=== PATIENT | female | born 1960 | race African-American/Black ===

== ENCOUNTER 2021-11-18 12:05 | Emergency (ER) | payer SELFPAY ==
[2021-11-18] MEDS ORDERED: Sodium Chloride 0.9% 10 ML Syringe FLUSH PRN (12:34)
[2021-11-18] MEDS ORDERED: Sodium Chloride 0.9% 2.5 ML Syringe FLUSH PRN (12:34)
[2021-11-18] MEDS ORDERED: Sodium Chloride 0.9% 1,000 ML IV ONE (12:34)
[2021-11-18 12:54] LABS: BLOOD UREA NITROGEN,BUN 12 mg/dL (7.0-18.0); CARBON DIOXIDE,CO2 26.1 mmol/L (21.0-32.0); CHLORIDE,CL 98 mmol/L (98-107); GLUCOSE RANDOM 136 mg/dL (74-106); POTASSIUM,K 3.8 mmol/L (3.5-5.1); SODIUM,NA 135 mmol/L (136-145)
[2021-11-18 13:26] LABS: CORONAVIRUS COVID-19 NAA POSITIVE (NEGATIVE); INFLUENZA A NAA NEGATIVE (NEGATIVE); INFLUENZA B NAA NEGATIVE (NEGATIVE)
== END 2021-11-18 14:42 | disposition home or self-care (01) ==
LOC: MW.ED 12:05
DX: U07.1 COVID-19 (principal); J44.1 Chronic obstructive pulmonary disease with (acute) exacerbation; Z72.0 Tobacco use
CPT/HCPCS: 0240U; 36415; 71045; 80053; 84484; 85025; 85379; 93005; 99285; J7030

== ENCOUNTER 2022-03-02 23:03 | Emergency (ER) | payer SELFPAY ==
[2022-03-02] MEDS ORDERED: Albuterol/Ipratropium 3.0-0.5 MG/3 ML Neb Soln NEB ONE (23:16)
[2022-03-03 00:07] LABS: BLOOD UREA NITROGEN,BUN 13 mg/dL (7.0-18.0); CARBON DIOXIDE,CO2 23.8 mmol/L (21.0-32.0); CHLORIDE,CL 103 mmol/L (98-107); GLUCOSE RANDOM 92 mg/dL (74-106); SODIUM,NA 138 mmol/L (136-145)
[2022-03-03] MEDS ORDERED: predniSONE 20 MG Tab PO ONE (00:39)
[2022-03-03] MEDS ORDERED: Azithromycin 250 MG Tab PO STA (00:40)
== END 2022-03-03 01:08 | disposition home or self-care (01) ==
LOC: MW.ED 23:03
DX: J44.1 Chronic obstructive pulmonary disease with (acute) exacerbation (principal); Z20.822 Contact with and (suspected) exposure to COVID-19
CPT/HCPCS: 36415; 71045; 80048; 83735; 83880; 84484; 85025; 87635; 93005; 99285; A9270; 93010; J7620-GY; U0002